=== PATIENT | female | born 1980 | race Two or more races ===

== ENCOUNTER 2017-01-10 08:59 | Emergency (ER) | payer OTHER ==
[~2017-01-10] VITALS: Ht 167.6 cm; Wt 63.5 kg
[2017-01-10 09:04] VITALS: BP 124/75
== END 2017-01-10 09:35 | disposition home or self-care (01) ==
LOC: ER 09:01
DX: S13.9XXA Sprain of joints and ligaments of unspecified parts of neck, initial encounter (principal); R51 Headache; X58.XXXA Exposure to other specified factors, initial encounter; Y92.89 Other specified places as the place of occurrence of the external cause; Y93.89 Activity, other specified; Y99.8 Other external cause status
CPT/HCPCS: 99282; A4606; Z7610